=== PATIENT | female | born 1950 | race Caucasian/White ===

== ENCOUNTER 2016-08-17 08:05 | Day surgery (SDC) | payer OTHER ==
--- NOTE | 2016-08-14 16:52 | HISTORY & PHYSICAL EXAMINATION ---
DATE OF ADMISSION: 08/17/2016 REASON FOR HISTORY AND PHYSICAL: Bronchoscopy. REASON FOR BRONCHOSCOPY: COPD with exacerbation, abnormal imaging study. HISTORY OF PRESENT ILLNESS: The patient is a 66-year-old female with past medical history of COPD, hypertrophic obstructive cardiomyopathy, morbid obesity, obstructive sleep apnea, abnormality on imaging, who was last seen in the office on 06/22/2016. At that time, the patient stated that she has continued to have difficulty with her breathing. She states that she feels like her breathing may be worsening. She states that she did have some exposure to mold and had some concerns about mold. She states that she lives in an older building where there is mold present. She states that they have moved some furniture in the building and found mold on the back sides of the furniture pieces. She is worried that it may be affecting her breathing. She is wondering if there is anything that can be done to evaluate this. She states that she is coughing quite a bit. She states that she is not really getting a lot of mucus up when she coughs but when she does have mucus, there is no blood in it and the mucus appears to be mostly clear or white. She states the mucus is very thick when she does get it coughed up as well. She states that after she is able to cough the mucus up, she is able to breathe a little bit better for a while. She states that she is also having some wheezing. She notices the wheezing mostly when she is exerting herself or sometimes when she is lying down. She states that she is much more short of breath with exertion. She is also having some trouble with feeling exhausted and tired all the time. She states that she has had to use a wheelchair or a walker for mobility at this time due in part to her difficulty breathing. She states that she has not had any pleuritic chest pain. She has not had any chest pressure. She states that she has not had any cardiac problems. She has not had any chest discomfort or palpitations. She denies any fever or chills. She denies any night sweats, although she reports that she is always too warm. She states that she is unsure if she has had any change in her weight. She has not had any difficulty swallowing. She has not had any nausea or vomiting. She has not had any problems with indigestion or heartburn. She has not had any changes in her appetite. She states that her bowels are regular. She has not had any problems with diarrhea or constipation. She has not had any blood in the stool that she is aware of. She has not had any difficulty voiding. She denies any dysuria. She has not had any pressure or urgency. She has not had any swelling in her extremities. She has been taking her medications as directed. She has not had any side effect to her medications. She states that she has continued to use her CPAP for sleep apnea. Her CPAP is set at 9 cm of water with oxygen at 3 liters per minute. She feels that this is helpful for her with her sleep and she feels more rested when she wakes up in the morning. She did have a CAT scan of her chest done. This was done 06/15/2016, it was done at [facility]. It is showing large airway narrowing secondary to patient's body habitus, not showing any other abnormalities at this time. The patient's last PFT was done 07/01/2015 and showed a forced vital capacity of 2.45 liters which is 87% predicted, FEV1 1.95 liters which is 86% predicted and FEV1/FVC ratio of 80%. Mild response to bronchodilator. The patient also underwent a 6-minute walk on 04/27/2016 which did not show any desaturation up to 4 minutes and had to be stopped because of dyspnea, joint pain, leg pain and fatigue. The patient also underwent a sleep study in May of 2015, which was a titration study which showed suppression of obstructive sleep apnea with a CPAP at a setting of 9 cm of water. The patient also had a nuclear stress test which was essentially unremarkable. The patient has no history of having had bronchoscopy done in the past. PAST MEDICAL HISTORY: Includes hypertension, anxiety, hypercholesterolemia, umbilical hernia, sleep apnea, history of 3 fractured ribs on the left, diabetes mellitus type 2, blood dyscrasias with labile platelets and thrombocytopenia, hypertrophic obstructive cardiomyopathy, COPD. PAST SURGICAL HISTORY: Includes a right foot hammertoe surgery, tooth extraction, appendectomy, sinus infection surgery. FAMILY HISTORY: Bone cancer in her brother. SOCIAL HISTORY: The patient lives alone. No alcohol or tobacco use. No illicit drug use. Does use CPAP at night. CURRENT MEDICATIONS: Include Brovana twice daily, albuterol via nebulizer q. 4 hours as needed, ProAir 2 puffs q. 4 hours as needed, QVAR 80 mcg 1 puff twice daily, pramipexole 0.25 mg 1/2 tablet 2 hours prior to bed and then 1 tablet at bedtime, bupropion 100 mg 1 tablet twice daily, buspirone 10 mg 1 tablet 3 times daily, glipizide 2.5 mg 1 tablet daily, Lasix 40 mg daily, levothyroxine 75 mcg daily, metformin 500 mg 2 tablets twice daily, oxygen 3 liters via nasal cannula and CPAP at nighttime, potassium chloride 20 mEq 1 tablet daily, sertraline 100 mg 2 tablets daily, simvastatin 20 mg 1 tablet daily, verapamil 240 mg 1 tablet daily. ALLERGIES: PERCOCET. REVIEW OF SYSTEMS: As above, otherwise unremarkable. PHYSICAL EXAMINATION: GENERAL: The patient is a 66-year-old, morbidly obese white female in no acute distress. She is alert and oriented x3. Mood is good. Affect is good. VITAL SIGNS: Temp 96.9, pulse 100, respirations 20, blood pressure 155/92, pulse ox 97% on room air. No current weight on the patient. HEENT: Normocephalic, atraumatic. Pupils equal, round and react to light and accommodation. Extraocular movements are intact. [place] moist gingival and buccal mucosa. NECK: Supple. No mass. No adenopathy. No bruit. CHEST: Diminished breath sounds bilaterally. No wheeze, rale or rhonchi. CARDIOVASCULAR: Regular rate and rhythm. No murmurs, gallops or rubs. ABDOMEN: Obese, soft, nontender. No guarding, rigidity or organomegaly. EXTREMITIES: No erythema or edema. NEUROLOGIC: Cranial nerves II through XII are intact. No focal deficit noted. IMPRESSION: A 66-year-old female with chronic obstructive pulmonary disease and obstructive sleep apnea who continues to have significant shortness of breath with some abnormality on imaging. At this point, it may be secondary to some airway collapse, which PAP therapy should help, also with exposure to mold. At this point we did discuss the patient's imaging and we discussed doing a bronchoscopy to directly visualize the airway. She is agreeable to this. We reviewed the risks, benefits, and alternatives to doing this procedure. She is agreeable to having the procedure done. She will have appropriate blood work done prior to the procedure. She will be followed up after the procedure. She is to continue her medications as they are.
[~2016-08-17] VITALS: Ht 160 cm; Wt 122.0 kg
[2016-08-17] VITALS (13 sets, daily range): BP systolic 88–201; BP diastolic 53–95; PULSE 86–102; TEMP 36.7–37.1; O2SAT 92–98; Ht 160 cm; Wt 122.0 kg
[2016-08-17] MEDS ORDERED: LEVALBUTEROL 1.25MG/3ML NEB INH ONE (08:06)
[2016-08-17] MEDS ORDERED: FENTANYL CITRATE INJ 50 MCG/1 ML 2 ML VIAL IV ONE ×2 (08:06→11:30)
[2016-08-17] MEDS ORDERED: LIDOCAINE HCL 2% LOCAL 50ML VIAL INFIL ONE (08:06)
[2016-08-17] MEDS ORDERED: MIDAZOLAM HCL 5 MG/ML 1 ML VIAL IV ONE ×2 (08:06→11:30)
[2016-08-17] MEDS ORDERED: OXYMETAZOLINE HCL 0.05% NA SPR 15 ML BTL ONE (08:06)
[2016-08-17] MEDS ORDERED: LIDOCAINE 4% W/AFRIN NASAL SOLN 4ML ONE (08:06)
[2016-08-17] MEDS ORDERED: BUPR-83 PO (10:12)
[2016-08-17] MEDS ORDERED: FRS/40 PO (10:12)
[2016-08-17] MEDS ORDERED: POTA20TA16 PO (10:12)
[2016-08-17] MEDS ORDERED: BUSP-8 PO (10:12)
[2016-08-17] MEDS ORDERED: GLC/500 PO (10:12)
[2016-08-17] MEDS ORDERED: SIMV20TA2 PO (10:12)
[2016-08-17] MEDS ORDERED: QVRINH80 INH (10:12)
[2016-08-17] MEDS ORDERED: PRAM0.129 PO (10:12)
[2016-08-17] MEDS ORDERED: SERT-234 PO (10:12)
[2016-08-17] MEDS ORDERED: LEVO75TA5 PO (10:12)
[2016-08-17] MEDS ORDERED: ALBU18002 INH (10:12)
[2016-08-17] MEDS ORDERED: ARFO15NE NEB (10:12)
[2016-08-17] MEDS ORDERED: GLIP5TAB11 PO (10:12)
[2016-08-17] MEDS ORDERED: VERA240T20 PO (10:12)
--- NOTE | 2016-08-17 10:32 | History & Physical Bridge Note ---
H&P Re-Evaluation Bridge Note: I have examined the patient, reviewed the History & Physical and in the interval since the performance of the History & Physical I have noted the following changes of clinical significance: No changes noted
--- NOTE | 2016-08-17 10:32 | Procedure Note ---
Pre-Mod Sedation Assessment General Date of Moderate Sedation: Aug 17, 2016. Vital Signs: Vital Signs Past 12 Hours Date Time Temp Pulse Resp B/P Pulse Ox O2 Delivery O2 Flow Rate FiO2 08/17/16 10:29 Nasal Cannula 4.0 Mask 08/17/16 10:25 100 24 150/77 98 Mask 10.0 08/17/16 10:20 102 24 201/95 94 Nasal Cannula 6.0 08/17/16 10:15 90 20 144/74 94 Nasal Cannula 4.0 08/17/16 10:10 92 20 145/72 93 Nasal Cannula 2.0 08/17/16 10:05 94 22 145/73 93 Room Air 08/17/16 09:03 36.7 96 22 155/81 94 Room Air Pre-Sedation Airway Assessment Oral Cavity: Dentures Smoking Status: Never Smoker Mallampati Classification: Class II ASA Classification: Class I Procedure Planning Contraindications-for Mod Sed: None Yes Notes The planned sedation has been discussed with the patient and consent obtained. I have identified the patient, determined the appropriateness of sedation and have assessed the patient immediately prior to the procedure. All medicine(s) and interventions are by my order.
[2016-08-17] MEDS ORDERED: NURSING VERBAL MED ORDER ONE (10:45)
[2016-08-17] MEDS ORDERED: DEXTROSE 5% 1000ML 1,000 ML IV ONE (11:30)
--- NOTE | 2016-08-17 12:02 | OPERATIVE REPORT ---
DATE OF OPERATION: 08/17/2016 PROCEDURE: Fiberoptic bronchoscopy with bronchoalveolar lavage. INDICATIONS: Chronic bronchitis with possible mucoid impaction refractory to aggressive outpatient management. ANESTHESIA PREOPERATIVELY: None. ANESTHESIA DURING PROCEDURE: 4 mg IV Versed, 20 mL 2% Xylocaine sprayed above and below the cords, 50 mcg IV fentanyl, 4% viscous Xylocaine intranasally. PROCEDURE: Fiberoptic bronchoscope was inserted into the right naris with minimal difficulty and passed to the level of the true vocal cords. The cords appeared to approximate normally with phonation without evidence of lesions or paralysis. The false cords were mildly edematous, but no evidence for upper airway obstruction was noted. The cords were anesthetized with 2% Xylocaine spray and the scope was then introduced in the trachea and right and left tracheobronchial tree. The kris was sharp. The right main stem bronchus was explored and a moderate degree of global inflammatory mucosal change was seen. The right upper lobe of the apical posterior, anterior segments, bronchus intermedius, right middle lobe, medial lateral segments and all basilar segments of right lower lobe were found to be free of endobronchial lesions. A small area of hemorrhagic mucosa was seen involving the right middle lobe bronchus and takeoff of the right lower lobe bronchus. These areas were copiously lavaged with normosol and the aspirate sent for appropriate studies. Mucous pitting was prominently displayed with mucus crypts and clefts visible as well throughout the right tracheobronchial tree. Left tracheobronchial tree was then explored. No endobronchial lesion was seen. Left upper lobe, the apical posterior and anterior segments, lingular subdivision and left lower lobe showed similar findings with small amount of mucopurulent secretion lavaged from left lower lobe until clear. Severe coughing paroxysms were noted and petechiae with small area of hemorrhagic mucosa was seen at the takeoff of the left lower lobe bronchus. This area was copiously lavaged with normosol and the aspirate sent for appropriate studies. No brushings or biopsies were deemed necessary. The procedure was terminated. The patient was given a nebulizer with Xopenex 1.25 mg and transferred to the medical treatment unit hemodynamically stable with no signs of respiratory compromise. Will await microbiological and cytologic examination of the bronchial washings. I attest to the content of the Intraoperative Record and any orders documented therein. Any exceptio ns are noted below.
--- NOTE | 2016-08-17 12:38 | Discharge Instructions ---
Discharge Instructions Admission Reason for Admission: Copd, Asthma/Dysthmia Discharge Discharge Diagnosis / Problem: COPD Discharge Goals Goal(s): Diagnostic testing Activity Recommendations Activity Limitations: resume your previous activity ACTIVITY RECOMMENDATIONS: * Rest today, resume normal activity tomorrow. * Do not drive today. SPECIAL CARE INSTRUCTIONS: * Call your physician if you experience any chest or shoulder pain, fever, coughing, spitting up blood (more than 2 teaspoons) or excessive shortness of breath. * Remove dressing from IV site (where needle was placed into the vein) after 2 hours. Apply a warm, moist compress to site if irritation occurs. Call physician if site becomes red or painful to touch. * You may eat 4 hours after the completion of your procedure * Resume all usual medications as previously directed FOLLOW UP VISIT: * Keep any scheduled doctor appointments. . Instructions / Follow-Up Instructions / Follow-Up ACTIVITY RECOMMENDATIONS: * Rest today, resume normal activity tomorrow. * Do not drive today. SPECIAL CARE INSTRUCTIONS: * Call your physician if you experience any chest or shoulder pain, fever, coughing, spitting up blood (more than 2 teaspoons) or excessive shortness of breath. * Remove dressing from IV site (where needle was placed into the vein) after 2 hours. Apply a warm, moist compress to site if irritation occurs. Call physician if site becomes red or painful to touch. * You may eat 4 hours after the completion of your procedure * Resume all usual medications as previously directed FOLLOW UP VISIT: * Keep any scheduled doctor appointments. Current Hospital Diet Patient's current hospital diet: None Discharge Diet Recommended Diet: Regular Diet Pending Studies Studies pending at discharge: yes List of pending studies: Bronchoscopy Washing Medical Emergencies . Who to Call and When: Medical Emergencies: If at any time you feel your situation is an emergency, please call 911 immediately. . Non-Emergent Contact Non-Emergency issues call your: Primary Care Provider Call Non-Emergent contact if: you have a fever, temperature is above 101, you have any medication questions . . "Provider Documentation" section prepared by Bogdan Valentin PA-C. VTE Core Measure Inpt VTE Proph given/why not?: Treatment not indicated (Outpatient procedure)
[2016-09-10 13:28] LABS: HERPES SIMPLEX CULT SOURCE OTHER-TRANCHEOBRONCH; HERPES SIMPLEX VIRUS CULT NOT ISOLATED (NOT ISOLATED)
== END 2016-08-17 12:55 | disposition home or self-care (01) ==
LOC: C.ACU 08:05
PROVIDERS: ATTEND Internal Medicine Pulmonary Disease
DX: J42 Unspecified chronic bronchitis (principal); J44.1 Chronic obstructive pulmonary disease with (acute) exacerbation; I10 Essential (primary) hypertension; E78.00 Pure hypercholesterolemia, unspecified; I42.1 Obstructive hypertrophic cardiomyopathy; G47.33 Obstructive sleep apnea (adult) (pediatric); Z79.899 Other long term (current) drug therapy; Z98.890 Other specified postprocedural states; Z90.89 Acquired absence of other organs; Z80.8 Family history of malignant neoplasm of other organs or systems